=== PATIENT | male | born 1955 | race Caucasian/White ===

== ENCOUNTER 2018-05-13 12:13 | Emergency (ER) | payer OTHER, SELFPAY ==
[2018-05-13 12:14] VITALS: BP 126/98; PULSE 83; RESP 16; TEMP 36.5; O2SAT 98; BMI 36.1
[2018-05-13] MEDS: Morphine 4 MG/ML Syringe IV (12:44)
[2018-05-13] MEDS: Ondansetron 4 MG/2 ML Vial IV (12:44)
[2018-05-13] MEDS: 0.9% Normal Saline 1,000 ML 150 ML IV (12:44)
[2018-05-13 13:01] LABS: Absolute Neutrophil Count 6.9 X10^3/uL (2.0-7.7); Basophil# 0.01 X10^3/uL; Basophil% 0.1 % (0-1); Eosinophil# 0.04 X10^3/uL; Eosinophils% 0.4 % (0-5); Hematocrit 45.1 % (40-54); Hemoglobin 15.2 g/dl (13.0-16.5); Lymphocyte % 15.7 % (19-41); Mean Corp Hgb Conc 33.7 g/gl (32-36); Mean Corpuscular Hgb 29.5 pg (27.0-32.0); Mean Corpuscular Volume 87.4 fL (80-94); Mean Platelet Vol. 10.4 fl (6.2-12.0); Monocyte# 1.08 X10^3/uL; Monocyte% 11.3 % (0-10); Neutrophil % 72.2 % (47-70); POSITIVE COUNT NO; POSITIVE DIFFERENTIAL NO; POSITIVE MORPHOLOGY NO; Platelet Count 260 K/mm3 (150-450); RBC Distribution Width CV 12.6 % (11.6-14.6); RBC Distribution Width SD 39.8 fl (35.1-43.9); Red Blood Count 5.16 M/mm3 (4.6-6.2); White Blood Count 9.6 K/mm3 (4.4-11.0)
[2018-05-13 13:08] LABS: Anion Gap 10 (5-15); BUN 13 mg/dL (7-18); BUN/Creat Ratio 12.3 RATIO (10-20); Calcium,Total 8.7 mg/dL (8.5-10.1); Chloride 103 mmol/L (98-107); Creatinine, Serum 1.06 mg/dL (0.70-1.30); EST Glomerular Filtration Rate 75 mL/min (>60); Est Glom Filt Rate - Afr Amer 91 mL/min (>60); Estimated Creatinine Clearance 74.61 ml/min; Glucose 149 mg/dL (74-106); Potassium 4.1 mmol/L (3.5-5.1); Sodium Level 140 mmol/L (136-145)
[2018-05-13 13:31] LABS: Bacteria 0 SEEN /hpf (None Seen); Mucous, Urine 0 SEEN /hpf (<or=2+); Squamous Epithelial Cells - UA 0 SEEN /hpf (0-5); White Blood Cells 0 SEEN /hpf (0-5)
[2018-05-13 13:45] LABS: Color, Urine Yellow (Yellow); Glucose, Dipstick Normal (Normal); Ketone-Dipstick Negative (Negative); Leukocyte Esterase-Dipstick Negative /ul (Negative); Nitrite-Dipstick Negative (Negative); Occult Blood-Urine 250 /ul (Negative); Protein-Dipstick Negative (Negative); Urine Bilirubin Dipstick Negative (Negative); Urine Clarity Clear (Clear); Urine Urobilinogen Normal (Normal)
[2018-05-13 13:50] LABS: Red Blood Cells-Urine 10-25 SEEN /hpf (0-5)
--- NOTE | 2018-05-13 15:34 | ED.VISSUMM ---
- ER Visit Summary Date of Service: 05/13/18 Chief Complaint: Right flank pain History of Present Illness: The patient is a 62 M complains of abdominal bloating and cramping that started yesterday. He had some mild right lower quadrant pain last evening. 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 His last bowel movement was yesterday. Patient has a history of diabetes and diverticulosis. Physical Examination: Vital signs unremarkable. Patient sitting upright in bed. He is in no acute distress. Head neck examination is normal. Heart is regular rate and rhythm. Lung sounds are clear. Abdomen is soft with mild tenderness in the lower abdomen. Active bowel sounds are noted throughout. Back examination does reveal mild right CVA tenderness. Test Results: CBC and chemistry studies unremarkable. Urinalysis does show blood. CT abdomen pelvis shows mild right hydronephrosis and hydroureter secondary to a 2.4 mm calculus in the distal right ureter. Emergency Department Course and Treatment: As given morphine and Zofran. On repeat evaluation pain is improved. Test results are discussed with patient as well as family at bedside. He will be given analgesics and antiemetics for home. He is to return if symptoms worsen. He will be referred to Dr. Sylvester for follow-up if not improving. Treatment Plan: [] Disposition: Discharge Impression: Right ureterolithiasis This note was generated with [employer] dictation software. It may contain incorrect words, spelling, and punctuation that were not noted in review of the chart prior to signing ED Disposition - Plan for ED Patient: Chief Complaint: Flank Pain Referrals: Gt Blackwell [Primary Care Provider] -
--- NOTE | 2018-05-13 15:38 | ED.DEP ---
ED Disposition - Plan for ED Patient: Disposition: Home or Assisted Living Chief Complaint: Flank Pain Instructions: ED Stone Renal W Colic Prescriptions: Ondansetron [Zofran Odt] 4 mg PO Q8H PRN PRN #10 tablet PRN Reason: Nausea Hydrocodone/Acetaminophen [[place] 5-325 Tablet] 1 - 2 each PO 4X/DAY PRN PRN 5 Days #20 tablet PRN Reason: Pain Ibuprofen [Ibu] 400 mg PO TID PRN PRN #14 tablet PRN Reason: Pain Referrals: Gt Blackwell [Primary Care Provider] - Abebe Sylvester MD [STAFF PHYSICIAN] - 1 Week if not improving
[2018-05-13 16:00] VITALS: BP 158/84; PULSE 71; RESP 16; O2SAT 98
== END 2018-05-13 16:01 | disposition home or self-care (01) ==
PROVIDERS: Emergency Provider Emergency Medicine; Family Provider Internal Medicine; PCP Internal Medicine
DX: N13.2 Hydronephrosis with renal and ureteral calculous obstruction (principal); E11.9 Type 2 diabetes mellitus without complications; K57.90 Diverticulosis of intestine, part unspecified, without perforation or abscess without bleeding; Z79.84 Long term (current) use of oral hypoglycemic drugs; Z79.899 Other long term (current) drug therapy
CPT/HCPCS: 74177; 80048; 81001; 85025; 96361; 96374; 96375; 99283; J7030; Q9967; A4216; J2405

== ENCOUNTER 2019-01-19 02:38 | Emergency (ER) | payer OTHER, SELFPAY ==
[2019-01-19 02:39] VITALS: BP 180/107; PULSE 89; RESP 14; TEMP 37.3; O2SAT 97; BMI 40.1
--- NOTE | 2019-01-19 02:48 | CT_ITS ---
STUDY: CT ABDOMEN AND PELVIS WITHOUT CONTRAST REASON FOR EXAM: Male, 63 years old. Right flank pain and urinary frequency. RADIATION DOSAGE (If Supplied By Facility): CTDIvol = ( 20.97 ) mGy, DLP = ( 1298.74 ) mGycm TECHNIQUE: Transaxial images were obtained from the dome of the diaphragm to the symphysis pubis without oral contrast, and without intravenous contrast. Sagittal and coronal images were reconstructed. Individualized dose optimization techniques were used for this CT. COMPARISON: 05/13/2018. FINDINGS: The visualized lung bases are unremarkable. The visualized portions of the heart are within normal limits. There is decreased attenuation of the liver consistent with steatosis. Normal gallbladder and extrahepatic biliary system. Normal spleen. Normal pancreas. Normal bilateral adrenal glands. As seen on axial images 163-165, there is a 5.5 mm wide distal right ureteral calculus near the ureterovesical junction. There is associated mild right hydronephrosis. 1 cm nonobstructive right mid renal calculus. There is a 3 mm nonobstructive left mid renal calculus. There is no demonstrated left ureteral calculus or hydronephrosis. There is a small hiatal hernia. Normal small intestine. There are multiple colonic diverticula consistent with diverticulosis. The appendix is seen on axial images 114-130 and it appears normal. There is mild atherosclerotic calcification of the abdominal aorta, without a demonstrated aneurysm. Normal inferior vena cava. Normal retroperitoneum. There are multiple soft tissue masses, possibly enlarged lymph nodes, carcinoid tumors, or metastatic lesions, in the small bowel mesentery, predominantly to the left of midline. These range up to 2.5 cm in short axis diameter. There is also infiltration of the surrounding S enteric fat. Similar findings were also present on previous exam, however, there is modest interval worsening. Maximal short axis diameter of individual nodules was only 1.8 cm on previous exam. Assessment of the urinary bladder is limited by nondistention. Normal abdominal wall. There are mild degenerative changes of the visualized lumbar spine. CT/Abdomen/Pelvis without Cont IMPRESSION: 5.5 mm wide distal right ureteral calculus with associated mild hydronephrosis of the right kidney. Nonobstructive renal calculi bilaterally. Redemonstration of multiple masses or enlarged lymph nodes in the small bowel mesentery with adjacent mesenteric fat infiltration. Appearance is worsened from the 2018 study. Fatty liver. Small hiatal hernia. Colonic diverticulosis, without evidence for acute diverticulitis. Atherosclerosis. Electronically Signed: Ronaldo Georges MD at 3:54 EDT , Service support ,
--- NOTE | 2019-01-19 02:48 | ED.VISSUMM ---
- ER Visit Summary Date of Service: 01/19/19 Chief Complaint: Right flank pain History of Present Illness: The patient is a 63 M who presents for right-sided flank pain that began 2 hours ago. Patient was sleeping when it woke him up. It is continuous and uncomfortable, rated 7 out of 10. Patient denies any fever, chest pain, shortness of breath, nausea or vomiting, diarrhea. He does have urinary frequency and urgency. He had prior similar symptoms with prior kidney stones. Patient also has history of diabetes and hypertension. He smokes a pipe. Physical Examination: Vital signs: afebrile, hemodynamically stable, no hypoxia on room air General: well nourished, well developed, in no distress Skin: warm, dry, no rash, no pallor HEENT: normocephalic and atraumatic; PERRL, EOMI, moist mucous membranes Cardiovascular: regular rate and rhythm without murmurs, no peripheral edema, 2+ pulses all distal extremities Respiratory: No increased work of breathing, lungs are clear to auscultation bilaterally, no rales, rhonchi or wheezing Abdominal: Abdomen is soft, nontender with normoactive bowel sounds, no guarding or rebound, no masses MSK: Moves all extremities, no deformities, normal strength Neuro: Awake and alert, oriented ?4. No facial droop, sensation and motor function intact and symmetric Test Results: Abnormal Lab Results 01/19/19 01/19/19 01/19/19 02:45 03:05 03:05 WBC 10.3 RBC 5.22 Hgb 15.2 Hct 44.5 MCV 85.2 MCH 29.1 MCHC 34.2 RDW 12.7 RDW Differential 39.0 Plt Count 256 MPV 9.9 Immature Gran % (Auto) 0.300 Neut % (Auto) 70.6 H Lymph % (Auto) 16.5 L Armstrong % (Auto) 11.3 H Eos % (Auto) 1.1 Baso % (Auto) 0.2 Absolute Neuts (auto) 7.3 Absolute Lymphs (auto) 1.70 Total Counted Not Reportable Sodium 140 Potassium 3.9 Chloride 101 Carbon Dioxide 29.0 Anion Gap 10 BUN 22 H Creatinine 1.40 H Estim Creat Clear Calc 52.25 Est GFR (MDRD) Af Amer 66 Est GFR (MDRD) Non-Af 54 L BUN/Creatinine Ratio 15.7 Glucose 191 H Calcium 9.3 Urine Color Yellow Urine Clarity Clear Urine pH 6.0 Ur Specific [place] 1.020 Urine Protein 15 H Urine Glucose (UA) Normal Urine Ketones Negative Urine Occult Blood 50 H Urine Nitrite Negative Urine Bilirubin Negative Urine Urobilinogen Normal Ur Leukocyte Esterase Negative Urine RBC 0-5 SEEN Urine WBC 0 SEEN Ur Squamous Epith Cells 0 SEEN Urine Bacteria 0 SEEN Urine Mucus 0 SEEN Clinical Impression(s) from Imaging Studies Abdomen/Pelvis CT 01/19/19 02:48 IMPRESSION: 5.5 mm wide distal right ureteral calculus with associated mild hydronephrosis of the right kidney. Nonobstructive renal calculi bilaterally. Redemonstration of multiple masses or enlarged lymph nodes in the small bowel mesentery with adjacent mesenteric fat infiltration. Appearance is worsened from the 2018 study. Fatty liver. Small hiatal hernia. Colonic diverticulosis, without evidence for acute diverticulitis. Atherosclerosis. Electronically Signed: Ronaldo Georges MD at 3:54 EDT , Service support , Medications Given Sodium Chloride () 1,000 mls @ 250 mls/hr IV .Q4H ERROL Last Admin: 01/19/19 03:01 Dose: 250 mls/hr Discontinued Medications Hydrocodone Bitart/Acetaminophen ([place] 5mg-325mg) 1 tablet PO X1 ONE Stop: 01/19/19 04:54 Ketorolac Tromethamine (Toradol) 15 mg IV X1 ONE Stop: 01/19/19 04:16 Last Admin: 01/19/19 04:21 Dose: 15 mg Morphine Sulfate () 4 mg IV X1 ONE Stop: 01/19/19 02:48 Last Admin: 01/19/19 03:00 Dose: 4 mg Ondansetron HCl (Zofran) 4 mg IV X1 ONE Stop: 01/19/19 02:48 Last Admin: 01/19/19 03:00 Dose: 4 mg Emergency Department Course and Treatment: Patient was given morphine and Zofran for symptomatic relief. Labs, urine and CT flank were performed. Patient had no significant renal dysfunction, no leukocytosis, no electrolyte derangements, and urine was negative for any gross hematuria or infection. CT flank did show a 5.5 mm right ureteral stone nearing the UVJ junction with mild hydronephrosis. Patient also had some mesenteric masses noted that were present on his last CT scan I discussed this finding with the patient, and he is currently being evaluated by an oncologist for these masses. Patient will continue this follow-up. Patient was still having significant pain and was given Toradol. Afterwards he had great improvement in his discomfort. Patient takes ibuprofen at home as needed for pain and will continue to do so for mild to moderate discomfort. He was given [place] for severe pain. Patient also given Flomax for 1 week, as the size of his stone falls within the range that may be assisted in passage with Flomax. Patient was given follow-up with a urologist. Patient discharged home in improved condition. Treatment Plan: [] Disposition: [] Impression: Right ureteral colic This note was generated with [employer] dictation software. It may contain incorrect words, spelling, and punctuation that were not noted in review of the chart prior to signing ED Disposition - Plan for ED Patient: Disposition: Home or Assisted Living Instructions: ED Stone Renal W Colic Prescriptions: Hydrocodone Bitart/[place]ap 5-325 [[place] 5MG-325MG] 1 tab PO Q6H PRN PRN 5 Days #15 tab PRN Reason: Pain Tamsulosin HCl [Flomax] 0.4 mg PO DAILY #7 cap Referrals: Gt Blackwell [Primary Care Provider] - 3-5 Days if not improving Abebe Sylvester MD [STAFF PHYSICIAN] - 5-7 Days Additional Instructions: Use your ibuprofen for mild to moderate pain. Use the [place] as needed for severe pain. Take the Flomax once daily for 7 days to help with passage of the kidney stone. Please follow-up with urology, as this is your second stone, and you have more that have formed in your kidneys. Continue to follow-up with your oncologist regarding the masses in your abdomen. If you have any worsening of your condition or any new concerning symptoms, please return immediately to the emergency department for another evaluation.
[2019-01-19] MEDS: Morphine 4 MG/ML Syringe IV (03:00)
[2019-01-19] MEDS: Ondansetron 4 MG/2 ML Vial IV (03:00)
[2019-01-19] MEDS: 0.9% Normal Saline 1,000 ML 250 ML IV (03:01)
[2019-01-19 03:08] LABS: Bacteria 0 SEEN /hpf (None Seen); Mucous, Urine 0 SEEN /hpf (<or=2+); Squamous Epithelial Cells - UA 0 SEEN /hpf (0-5); White Blood Cells 0 SEEN /hpf (0-5)
[2019-01-19 03:11] LABS: Absolute Neutrophil Count 7.3 X10^3/uL (2.0-7.7); Basophil# 0.02 X10^3/uL; Basophil% 0.2 % (0-1); Eosinophil# 0.11 X10^3/uL; Eosinophils% 1.1 % (0-5); Hematocrit 44.5 % (40-54); Hemoglobin 15.2 g/dl (13.0-16.5); Lymphocyte % 16.5 % (19-41); Mean Corp Hgb Conc 34.2 g/gl (32-36); Mean Corpuscular Hgb 29.1 pg (27.0-32.0); Mean Corpuscular Volume 85.2 fL (80-94); Mean Platelet Vol. 9.9 fl (6.2-12.0); Monocyte# 1.16 X10^3/uL; Monocyte% 11.3 % (0-10); Neutrophil # 7.27 X10^3/uL (2.7-7.7); Neutrophil % 70.6 % (47-70); Platelet Count 256 K/mm3 (150-450); RBC Distribution Width CV 12.7 % (11.6-14.6); Red Blood Count 5.22 M/mm3 (4.6-6.2); White Blood Count 10.3 K/mm3 (4.4-11.0)
[2019-01-19 03:12] LABS: Color, Urine Yellow (Yellow); Glucose, Dipstick Normal (Normal); Ketone-Dipstick Negative (Negative); Leukocyte Esterase-Dipstick Negative /ul (Negative); Nitrite-Dipstick Negative (Negative); Occult Blood-Urine 50 /ul (Negative); Protein-Dipstick 15 mg/dl (Negative); Urine Bilirubin Dipstick Negative (Negative); Urine Clarity Clear (Clear); Urine Urobilinogen Normal (Normal)
[2019-01-19 03:15] LABS: POSITIVE COUNT NO; POSITIVE DIFFERENTIAL NO; POSITIVE MORPHOLOGY NO
[2019-01-19 03:19] LABS: Red Blood Cells-Urine 0-5 SEEN /hpf (0-5)
[2019-01-19 03:24] LABS: Anion Gap 10 (5-15); BUN 22 mg/dL (7-18); BUN/Creat Ratio 15.7 RATIO (10-20); Calcium,Total 9.3 mg/dL (8.5-10.1); Chloride 101 mmol/L (98-107); EST Glomerular Filtration Rate 54 mL/min (>60); Est Glom Filt Rate - Afr Amer 66 mL/min (>60); Estimated Creatinine Clearance 52.25 ml/min; Glucose 191 mg/dL (74-106); Potassium 3.9 mmol/L (3.5-5.1); Sodium Level 140 mmol/L (136-145)
[2019-01-19] MEDS: Ketorolac 15 MG/ML Vial IV (04:21)
[2019-01-19 04:49] VITALS: BP 158/89; PULSE 87; RESP 18; O2SAT 97
[2019-01-19] MEDS: HYDROcodone Bitartrate/Apap 5/325 Tablet PO (05:06)
[2019-01-19 05:07] VITALS: BP 151/86; PULSE 83; RESP 18; O2SAT 98
== END 2019-01-19 05:11 | disposition home or self-care (01) ==
PROVIDERS: Emergency Provider Emergency Medicine; Family Provider Internal Medicine; PCP Internal Medicine
DX: N13.2 Hydronephrosis with renal and ureteral calculous obstruction (principal); R19.07 Generalized intra-abdominal and pelvic swelling, mass and lump; I10 Essential (primary) hypertension; E11.9 Type 2 diabetes mellitus without complications; F17.290 Nicotine dependence, other tobacco product, uncomplicated; Z87.442 Personal history of urinary calculi; Z79.84 Long term (current) use of oral hypoglycemic drugs; Z79.899 Other long term (current) drug therapy
CPT/HCPCS: 74176; 80048; 81001; 85025; 96361; 96374; 96375; 99283; J7030; A4216; J2405